=== PATIENT | female | born 1990 | race Caucasian/White ===

== ENCOUNTER 2024-04-29 04:09 | Emergency (ER) | payer OTHER, SELFPAY ==
[2024-04-29 04:11] VITALS: BP 136/80
[2024-04-29 04:26] VITALS: BMI 32.4
[2024-04-29 04:27] VITALS: BP 101/73
[2024-04-29 04:45] LABS: % Basophils 0.5 % (0-2); % Eosinophils 0.9 % (0-6); % Immature Granulocytes 0.5 % (0-0.5); % Lymphocytes 25.6 % (20.5-51.1); % Monocytes 6.9 % (1.7-9.3); % Neutrophils 65.6 % (42.2-75.2); Absolute Eosinophils 0.1 10^3/uL (0-0.7); Absolute Lymphocytes 2.2 10^3/uL (1.2-3.4); Absolute Monocytes 0.6 10^3/uL (0.1-0.6); Absolute Neutrophils 5.6 10^3/uL (1.4-6.5); Hematocrit 39.1 % (37.0-47.0); Hemoglobin 13.6 g/dL (12.0-16.0); Mean Corp Hgb Conc. 34.8 g/dL (33.0-37.0); Mean Corpuscular Hgb 30.6 pg (27.0-31.0); Mean Corpuscular Volume 87.9 fL (81.0-99.0); Mean Platelet Volume 9.9 fL (7.4-10.4); Nucleated Red Blood Cells % 0 %; Platelet Count 239 10^3/uL (130-400); Red Blood Cell Count 4.45 10^6/uL (4.20-5.40); Red Cell Dist. Width 11.8 % (11.5-14.5); White Blood Cell Count 8.5 10^3/uL (4.8-10.8)
--- NOTE | 2024-04-29 04:59 | ED.GENMED ---
History of Present Illness
General
Chief Complaint: Abdominal Pain
Source: patient and spouse
Exam Limitations: none
Time Seen by Provider: 04/29/24 04:34
Nursing documentation reviewed up to this point in time: agreed with
History of Present Illness
History of Present Illness:
This is a 33-year-old woman with history of PCOS, currently approximately 6 to 7 weeks with last menstrual period March 12 and positive home test.
She is 3 para 2.
She presents with generalized upper abdominal pain that began mildly around 10 PM tonight while at a [employer] party. Initially thought that it was related to 'all the junk that she ate' But thus far has had no improvement after a dose of Pepcid
AC around 10 PM. Upper abdominal pain has progressively worsened with onset of nausea without vomiting. She took an additional dose of Pepcid at 2 AM without relief.
She denies back pain or chest pain, no coughing or shortness of breath, no diarrhea or constipation, no dysuria and urgency and or hematuria.
Questionable similar episode of upper abdominal pain 2014. Reportedly unremarkable ED evaluation, placed on a PPI and follow-up with GI approximately 3 months later underwent unremarkable endoscopy. No recurrent episodes until tonight.
No prior abdominal surgeries.
She is usually maintained on metformin for PCOS but has not picked up her prescription over the past few days. Other than this she has been maintained on vitamins.
She arrives to the ED accompanied by her , and knifeman at [facility].
Past History
Past History
ED Past Medical History: Other (PCOS)
ED Past Surgical History: None
Social History
Tobacco: Non-smoker
Alcohol: None
Personal:
Living: with family
Family History
Family History: Other (Noncontributory)
Phy Exam
Physical Exam
Physical Exam:
GENERAL: 33-year-old woman appears her stated age, bright and alert, pleasant, appears in no acute distress. is accompanying. Vital signs within normal limits.
EYE: anicteric
NECK: Supple, nontender, no meningismus, no significant adenopathy.
ENT: oral mucosa is moist. No rhinorrhea.
CARDIAC: Regular rate and rhythm. no murmur.
LUNGS: Clear breath sounds bilaterally, no acute respiratory distress, no wheezes/rales/rhonchi
ABDOMEN: Soft, nondistended, mild to moderate generalized upper abdominal tenderness to palpation, no r/g, no cvat. normoactive BS.
NEUROLOGICAL: Alert and oriented x3, no focal neuro deficits. Gait is steady.
SKIN: Warm and dry, normal color, skin intact. No rash.
MUSCULOSKELETAL: No C/C/E. peripheral pulses are full and equal b/l. No palpable tenderness.
PSYCH: Normal and appropriate interaction.
Course
Orders/Labs/Results
Orders:
Orders
04/29/24 04:37
Test Result ONCE
04/29/24 04:38
Complete Blood Count/With Diff Urgent
04/29/24 04:46
0.9% Sodium Chloride 1000 ml [Nss] 1,000 ml IV BOLUS
Metoclopramide [Reglan] 10 mg IV NOW STA
Pantoprazole [Protonix IV] 40 mg IV NOW STA
US 1st Trimester Urgent
Comment:
Reason For Exam: acute abd pain, (+)home preg test LMP 03/12/24
04/29/24 04:48
US Abdomen Complete/Upper Urgent
Comment:
Reason For Exam: acute upper abd pain
04/29/24 04:58
Beta HCG Quantitative Urgent
Comment: ADD ON
Comprehensive Metabolic Panel Urgent
HCG, Serum Qualitative Screen Urgent
Lipase Urgent
04/29/24 05:42
Add On- LAB Urgent
Comments:: add on
Tests Added?: hcg, serum quanitative
Abnormal Lab Results
04/29/24
04:58
Carbon Dioxide 19 L mmol/L
(22-30)
Creatinine 0.5 L mg/dL
(0.6-1.0)
Glucose 117 H mg/dl
(70-99)
Total Bilirubin 0.1 L mg/dl
(0.2-1.3)
Alkaline Phosphatase 36 L U/L
(38-126)
04/29/24 04:38
04/29/24 04:58
Vital Signs
Initial and Last Documented VS:
Initial Vital Signs
Temp Pulse Resp BP Pulse Ox
97.8 F 64 20 136/80 100
04/29/24 04:11 04/29/24 04:11 04/29/24 04:11 04/29/24 04:11 04/29/24 04:11
Last Documented Vital Signs
Temp Pulse Resp BP Pulse Ox
97.8 F 64 20 99/59 97
04/29/24 04:11 04/29/24 04:11 04/29/24 04:11 04/29/24 06:00 04/29/24 06:00
MDM/Problems Addressed
Differential Diagnosis Includes:
Concern for acute gastritis, acute biliary colic/cholecystitis, pancreatitis, acute gastroenteritis.
Will check labs will check serum hCG and if positive, quantitative hCG.
Will plan for abdominal ultrasound as well as ultrasound.
Chronic conditions affecting care: Other (PCOS)
*Radiology
Radiology exam reviewed: radiology read reviewed
*Pulse Oximetry
Patient hypoxic: no
*Critical Care Note
Total Time (30-74mins, 75-104mins- exclusive of procedures): Not Applicable
Update Note
Update Note:
06:45
Patient feeling markedly improved after IV Protonix, Reglan. No further nausea nor upper abdominal discomfort.
Labs are all unremarkable, within normal limits.
Quantitative hCG 12,986. She continues to have no lower abdominal pain, no vaginal bleeding.
Awaiting abdominal and pelvic ultrasound.
I suspect an element of gastritis perhaps nausea related to early .
Recommend continuing Pepcid and will add Diclegis for nausea.
[place] diet.
Prompt follow-up with DIRECTOR OF NUCLEAR MEDICINE for recheck.
ED Attending Note
-
Portions of this chart may have been created with voice recognition software.� Occasional wrong word or��sound alike� substitutions may have occurred due to the inherent limitations of voice recognition software.
Discharge Plan
Departure
Patient Disposition: Home (Routine Discharge)
Date of Disposition: 04/29/24
Time of Disposition: 07:26
Patient with high blood pressure during this ER visit?: No
Condition: Good
Discharge Problem:
Abdominal pain, acute, epigastric, Acute gastritis, First trimester
Instructions: Gastritis (DC), Stomach Pain in Early
Prescriptions:
New
doxylamine-pyridoxine (vit B6) [Diclegis] 10-10 mg tablet,delayed release (DR/EC)
2 tab PO HS Qty: 60 0RF
Referrals:
Juliana Pierre CRNP [Family Provider] -
Interventions
Interventions:
*Risk Screen - Suicide Last Done: 04/29/24 04:11
*General Assessment Last Done: 04/29/24 04:28
*Neglect/Abuse Screening Last Done: 04/29/24 04:11
ED- Fall Risk Assessment Last Done: 04/29/24 04:25
*ED COVID-19 Vaccine History Last Done: 04/29/24 04:28
QN-Ysndbi-Fltfsxrmpd Assessment Last Done: 04/29/24 04:24
Discharge Date and Time
Print Language: HONDURAN
[2024-04-29 05:00] VITALS: BP 109/74
[2024-04-29] MEDS: NSS 1000 IV (05:00)
[2024-04-29] MEDS: REGLAN 10 MG IV (05:00)
[2024-04-29] MEDS: PROTONIX IV 40 MG IV (05:00)
[2024-04-29 05:40] LABS: HCG, Serum Qualitative Screen Positive
[2024-04-29 05:50] LABS: ALT (SGPT) 31 U/L (0-35); AST (SGOT) 25 U/L (14-36); Albumin 4.4 g/dl (3.5-5.0); Alkaline Phosphatase 36 U/L (38-126); Blood Urea Nitrogen 15 mg/dl (7-17); Calcium 9.6 mg/dl (8.4-10.2); Carbon Dioxide 19 mmol/L (22-30); Chloride 104 mmol/L (98-107); Estimated Creatinine Clearance > 125 ml/min; Glucose 117 mg/dl (70-99); Lipase 103 U/L (23-300); Potassium 3.7 mmol/L (3.5-5.1); Sodium 135 mmol/L (135-145); Total Bilirubin 0.1 mg/dl (0.2-1.3); Total Protein 6.9 g/dl (6.3-8.2); eGFR > 60.00
[2024-04-29 06:00] VITALS: BP 99/59
[2024-04-29 08:16] VITALS: BP 116/79
== END 2024-04-29 08:00 | disposition home or self-care (01) ==
LOC: EMR 04:09
PROVIDERS: EMERGENCY PHYSICIAN Emergency Medicine; FAMILY PHYSICIAN Registered Nurse
DX: O99.891 Other specified diseases and conditions complicating pregnancy (principal); O99.281 Endocrine, nutritional and metabolic diseases complicating pregnancy, first trimester; E28.2 Polycystic ovarian syndrome; O99.611 Diseases of the digestive system complicating pregnancy, first trimester; K29.00 Acute gastritis without bleeding; Z3A.01 Less than 8 weeks gestation of pregnancy
CPT/HCPCS: 99284; 96374; 96375; 96361; 76700; 76801; 80053; 83690; 84702; 84703; 85025